=== PATIENT | female | born 1965 | race Caucasian/White ===

== ENCOUNTER → 2021-02-24 | Day surgery (SDC) | payer OTHER ==
[~2021-02-24] VITALS: Ht 167.6 cm; Wt 86.2 kg
[~2021-02-24] MED LIST: BACLOFEN 10MG T10 MG PO; CALTRATE 600 +1 EAC1 PO; DICLOFENAC SODI75 MG PO; IBUPROFEN800 MG PO; LASIX20 MG PO; MOBIC7.5 MG PO; NORCO 5-325 TA1 EACH PO; PERCOCET 5-3251 EACH PO; TRAMADOL HCL50 MG PO
[2021-02-24 06:45] LABS: HCT 36.3 % (37.0-47.0); HGB 12.3 g/dl (12.5-16.0); MCH 31.6 pg (25.0-31.0); MCHC 33.9 g/dL (32.0-36.0); MCV 93.3 fL (78.0-100.0); MPV 10.1 fL (6.0-9.5); RBC 3.89 M/uL (4.20-5.40); RDW 13.4 % (11.5-14.0); WBC 4.4 K/uL (4.0-10.5)
[2021-02-24 07:09] LABS: ALBUMIN 3.2 g/dL (3.4-5.0); BILIRUBIN - TOTAL 0.2 mg/dL (0.2-1.0); BUN/CREAT RATIO (CALC) 25.7 RATIO; CREATININE 0.74 mg/dL (0.51-0.95); GLOBULIN (CALCULATION) 3.4 g/dL; POTASSIUM 4.5 mmol/L (3.5-5.1); TOTAL PROTEIN 6.6 g/dL (6.4-8.2)
== END | disposition home or self-care (01) ==
LOC: FAS 06:08
PROVIDERS: Orthopaedic Surgery
DX: M19.011 Primary osteoarthritis, right shoulder (principal); S43.421A Sprain of right rotator cuff capsule, initial encounter; W19.XXXA Unspecified fall, initial encounter; Y99.0 Civilian activity done for income or pay
CPT/HCPCS: 36415; 71045; 80053; 93005; J0171; J0690; J1100; J2250; J2405; J2704; J2795; J7120